=== PATIENT | female | born 1985 | race Asian ===

== ENCOUNTER 2023-10-23 10:19 | Emergency (ER) | payer MEDICAID ==
[~2023-10-23] VITALS: Ht 149.9 cm; Wt 86.2 kg
[2023-10-23] MEDS ORDERED: LIDOCAINE VISCOUS 2% UD 15 ML UDC ONE (11:57)
[2023-10-23] MEDS: LIDOCAINE VISCOUS 2% UD 15 ML UDC MM ONE (11:59)
[2023-10-23 12:12] VITALS: BP 123/67; TEMP 98.2; O2SAT 98
== END 2023-10-23 12:13 | disposition home or self-care (01) ==
LOC: ER 10:19
DX: S27.818A Other injury of esophagus (thoracic part), initial encounter (principal); R09.A2 Foreign body sensation, throat; E11.9 Type 2 diabetes mellitus without complications; X58.XXXA Exposure to other specified factors, initial encounter; Y93.89 Activity, other specified; Y92.89 Other specified places as the place of occurrence of the external cause; Y99.8 Other external cause status
CPT/HCPCS: 70490-TC